=== PATIENT | male | born 1995 | race Caucasian/White ===

== ENCOUNTER 2020-12-19 09:44 | Emergency (ER) | payer BC, SELFPAY ==
--- NOTE | 2020-12-19 09:45 | DI.RAD_ITS ---
EXAM: XR SHOULDER LT COMPLETE 2+V CLINICAL HISTORY: Fall, lateral pain. TECHNIQUE: 2D digital imaging was performed. COMPARISON: No exams were available for comparison FINDINGS: BONES: No acute fracture is present. No bony destructive lesion is seen. JOINTS: No dislocation present. SOFT TISSUE: Normal. IMPRESSION: Unremarkable radiographs of the left shoulder. DATA REPOSITORY: RADIATION DOSE DELIVERED:
[2020-12-19 09:50] VITALS: BP 117/78; PULSE 99; RESP 16; TEMP 37.2; O2SAT 98
--- NOTE | 2020-12-19 10:01 | W.ED.GENAD ---
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 He contused both knees and also complains of left shoulder pain. Clinically the knees have mild contusions and are not in need of x-ray. He has left lateral shoulder tenderness on palpation must exclude distal clavicle or AC injury and cannot exclude rotator cuff injury. Patient with ibuprofen and referred for x-ray. There is no evidence of bony fracture or displacement. Will place in sling. Will refer to orthopedics for followup-recheck. Given work note off duty. HPI General Mode of arrival: ambulatory. Date/Time Provider Initiated Documentation: 12/19/20 09:45. Limitations to Documentation: no limitations. Information obtained by: patient. History of Present Illness 25 year old M presents to the emergency department with the chief complaint of Fall downstairs, bilateral knee and left shoulder pain, described as moderate, Quality is described as constant, and is localized to the left and upper extremity. Patient reports no radiation. Patient started experiencing this minute(s) and it has been constant. No relieving factors improve symptom(s), No exacerbating factors reported . Patient notes denies chest pain, headaches, shortness of breath and syncope. Patient did receive the following treatments prior to arrival, none Related Data Home Medications Medication Instructions Recorded Confirmed Unknown [No Known Home Meds] 12/19/20 12/19/20 Allergies Allergy/AdvReac Type Severity Reaction Status Date / Time Penicillins Allergy Unverified 12/19/20 09:52 General Stated Complaint: Orthopedic KRISTIAN: 4 Review of Systems Narrative: No headache or loss of conscious. No chest/neck/back or abdominal pain. No difficulty breathing. 6 systems reviewed and otherwise negative [facility] Social History Smoking/Tobacco Use Status: Never Smoking risk assessment performed?: Yes Alcohol Intake: never Drug use: Never Substance use type: does not use Do you feel safe at home: Yes Do you feel safe in your relationship?: Yes Exam Narrative Exam Narrative: GEN: awake, alert, oriented 3. Pleasant, well groomed, interactive. HEAD: Normocephalic, atraumatic ENT: Mucous membranes moist, oropharynx unremarkable, External ear exam unremarkable EYES: PERRL, EOMI NECK: Full ROM, no DANIELA, no menigismus CHEST/RESP: Nontender, clear to auscultation bilateral, no wheeze/rhonchi/rales CARDIOVASCULAR: RRR, no murmur, rub jessie. 2+ Rad pulse bilateral ABDOMEN: Soft, nontender, no mass. +Bowel sounds EXT: Full ROM, no edema, bilateral anterior knee subtle ecchymosis, normal strength. Left lateral shoulder tenderness to palpation. Patient is able to perform empty can test but with some increased pain posteriorly. Neuro: Grossly normal neurologic exam, conversant, interactive. Psych: Speech fluent, thoughts congruent, affect normal Course Vital Signs Vital signs: Vital Signs Temperature 37.2 C 12/19/20 09:50 Pulse 99 H 12/19/20 09:50 Respiratory Rate 16 12/19/20 09:50 Blood Pressure 117/78 12/19/20 09:50 Pulse Oximetry 98 12/19/20 09:50 Temperature 37.2 C 12/19/20 09:50 Temperature Source Skin 12/19/20 09:50 Pulse 99 H 12/19/20 09:50 Respiratory Rate 16 12/19/20 09:50 Respiratory Effort 12/19/20 09:52 Blood Pressure 117/78 12/19/20 09:50 Blood Pressure Position Sitting 12/19/20 09:50 Pulse Oximetry 98 12/19/20 09:50 Oxygen Delivery Method Room Air 12/19/20 09:50 Oxygen Flow Rate 0 12/19/20 09:50 Pain Level 7 12/19/20 09:52
[2020-12-19] MEDS: Ibuprofen 800 MG TAB PO (10:13)
--- NOTE | 2020-12-19 10:21 | NUR.NOTE ---
abrasion to right knee, no bleeding.
--- NOTE | 2020-12-19 10:57 | DI.VRAD_ITS ---
PROCEDURE INFORMATION: Exam: XR Left Shoulder Exam date and time: 12/19/2020 10:00 AM Age: 25 years old Clinical indication: Other: Fall, lateral pain TECHNIQUE: Imaging protocol: XR Left shoulder. Views: 2 or more views. COMPARISON: No relevant prior studies available. FINDINGS: Bones/joints: Normal. Soft tissues: Normal. IMPRESSION: No acute findings. Dictated and Authenticated by: Elaine Flores MD. Ordering:JASMIN Whitmore MD
== END 2020-12-19 11:07 | disposition home or self-care (01) ==
PROVIDERS: Emergency Provider Emergency Medicine
DX: S46.912A Strain of unspecified muscle, fascia and tendon at shoulder and upper arm level, left arm, initial encounter (principal); S80.01XA Contusion of right knee, initial encounter; S80.02XA Contusion of left knee, initial encounter; W10.8XXA Fall (on) (from) other stairs and steps, initial encounter; Y99.0 Civilian activity done for income or pay
CPT/HCPCS: 99283; 73030

== ENCOUNTER 2020-12-23 14:41 | Emergency (ER) | payer BC, SELFPAY ==
[2020-12-23 14:48] VITALS: BP 143/79; PULSE 87; RESP 16; TEMP 36.5; O2SAT 97
--- NOTE | 2020-12-23 14:55 | ED.GENADUL_ITS ---
Discharge Plan Disposition Patient Disposition: HOME Condition: Stable Discharge Details Clinical Impression: Chronic left shoulder pain Primary Care Provider: Krish Cook ED Provider: Sabra Jovel Home Meds and New Rx's Prescriptions: No Action No Known Home Meds RF: 0 Discharge Instructions Instructions: Shoulder Pain (ED) Additional Instructions: Rest, ice, and elevate the affected area as much as possible. Alternate tylenol and motrin as needed and directed for pain. Continue to wear your sling for comfort but continue to use gentle shoulder range of motion exercises to prevent frozen shoulder. Follow-up with your scheduled appointment with orthopedics next month. Return immediately to the emergency department if you develop any worsening or new concerning symptoms. Stand Alone Forms: Work Release Discharge Data Discharge Physician: Sabra Jovel Medical Decision Making 25-year-old male presents with persistent left shoulder pain after fall down stairs a few days ago. Seen here at that time with negative left shoulder x- rays. Presents with persistent pain. Patient wearing a left sling. He has tenderness to palpation of his left distal clavicle and left anterior lateral shoulder. Pain is reproducible with active and passive range of motion, without deformity or evidence of trauma and he is neurovascular intact. Suspect most likely persistent pain associated with shoulder strain versus contusion, may be exacerbated by lying on left side while sleeping. Do not see indication for additional imaging as this would not change the plan at this point at this time. Also consider possible rotator cuff injury. Patient placed on orthopedic follow-up with for reevaluation if pain persists or worsens. Patient expressed concern about returning to work this week. Patient given a work note to return next week. Usual and customary return precautions given prior to discharge. Medical Records Medical records reviewed: Yes I reviewed the patient's medical records. HPI General Mode of arrival: ambulatory . Date/Time Provider Initiated Documentation: 12/23/20 14:44 . Limitations to Documentation: no limitations . Information obtained by: patient . HPI Narrative: Patient is a 25-year-old male who presents with persistent left shoulder pain after a fall 3 days ago at work. Patient states he slipped on a recently cleaned floor at work and rolled down a few stairs and fell on his left shoulder. Patient was seen here 3 days ago for this complaint and had a left shoulder x-ray which was negative. Patient states he was advised to return if his symptoms do not improve or worsen. He states he has not yet returned to work and has been wearing a left sling but has been using gentle range of motion exercises for his left shoulder. He states he thinks he is turning in his sleep and leaning on his left shoulder at times. He admits to occasional radiation of pain into his distal arm with some tingling in his fingers. He has been taking ibuprofen regularly with some relief. Related Data Home Medications Medication Instructions Recorded Confirmed Unknown [No Known Home Meds] 12/19/20 12/19/20 Allergies Allergy/AdvReac Type Severity Reaction Status Date / Time Penicillins Allergy Unverified 12/19/20 09:52 General Stated Complaint: Recheck KRISTIAN: 4 Review of Systems All systems reviewed & are unremarkable except as noted in HPI and below Constitutional Constitutional: Reports as per HPI, Denies chills and Denies fever(s) Eyes Eyes: Denies blurry vision ENT Ears, Nose, Mouth, and Throat: Denies dizziness, Denies sore throat and Denies throat swelling Cardiovascular Cardiovascular: Denies chest pain and Denies dyspnea Respiratory Respiratory: Denies cough and Denies dyspnea Gastrointestinal Gastrointestinal: Denies abdominal pain, Denies diarrhea and Denies vomiting Genitourinary Genitourinary: Denies hematuria and Denies dysuria Musculoskeletal Musculoskeletal: Denies back pain and Denies numbness Integumentary/Breasts Skin/Breast: Denies lesions and Denies rash Neurologic Neurologic: Denies dizziness, Denies localized weakness and Denies numbness Allergic/Immunologic Allergic/Immunologic: Denies throat swelling [facility] Medical History (Updated 12/23/20 @ 19:46 by Sabra Jovel DO) No significant past medical history Surgical History (Updated 12/23/20 @ 19:46 by Sabra Jovel DO) No significant past surgical history Social History Smoking/Tobacco Use Status: Never Smoking risk assessment performed?: Yes Alcohol Intake: never Drug use: Never Substance use type: does not use Do you feel safe at home: Yes Do you feel safe in your relationship?: Yes Exam Const General: cooperative, healthy appearing and no acute distress HENMT Head: normal to inspection Mouth: oral mucosae normal Eyes General: appearance normal, both eyes and all related structures Neck Neck: normal visual inspection Resp Effort & Inspection: normal respiratory effort and able to speak in complete sentences Cardio Rate: regular rate Skin General skin exam: no rashes or lesions noted Neuro General: patient alert, patient awake and patient oriented x3 Motor: muscle tone normal throughout Extrem Other: Tenderness to palpation to left lateral clavicle and left anterior and lateral shoulder. Pain in left shoulder reproducible with passive and active range of motion. There is no crepitus, deformity, edema, erythema, ecchymosis. Left radial and ulnar pulses intact. No tenderness palpation of left elbow. Psych Appearance: grossly normal Affect: normal affect Course Vital Signs Vital signs: Vital Signs Temperature 97.7 F 12/23/20 14:48 Pulse 87 12/23/20 14:48 Respiratory Rate 16 12/23/20 14:48 Blood Pressure 143/79 H 12/23/20 14:48 Pulse Oximetry 97 12/23/20 14:48 Temperature 97.7 F 12/23/20 14:48 Temperature Source Temporal Artery Scan 12/23/20 14:48 Pulse 87 12/23/20 14:48 Respiratory Rate 16 12/23/20 14:48 Respiratory Effort Non-Labored 12/23/20 14:50 Blood Pressure 143/79 H 12/23/20 14:48 Blood Pressure Position Sitting 12/23/20 14:48 Pulse Oximetry 97 12/23/20 14:48 Oxygen Delivery Method Room Air 12/23/20 14:48 Oxygen Flow Rate 0 12/23/20 14:48 Pain Level 8 12/23/20 14:48
== END 2020-12-23 16:12 | disposition home or self-care (01) ==
PROVIDERS: Emergency Provider Physician Assistant; PCP Nurse Practitioner
DX: M25.512 Pain in left shoulder (principal); G89.29 Other chronic pain
CPT/HCPCS: 99282; 99283

== ENCOUNTER 2020-12-30 06:30 | Emergency (ER) | payer BC, SELFPAY ==
[2020-12-30 06:40] VITALS: BP 128/79; PULSE 94; RESP 15; TEMP 36.5; O2SAT 98
--- NOTE | 2020-12-30 06:51 | W.ED.GENAD ---
Discharge Plan Disposition Patient Disposition: HOME Condition: Stable Discharge Details Chief Complaint: Orthopedic Clinical Impression: Left shoulder strain Primary Care Provider: Krish Cook ED Provider: Joel Perez Home Meds and New Rx's Prescriptions: No Action No Known Home Meds RF: 0 Discharge Instructions Instructions: Shoulder Pain (ED) Additional Instructions: You likely have injury to the tendons or ligaments in your shoulder follow up as scheduled with orthopedics if you have severe worsening pain, fevers or spreading redness around the shoulder return to the emergency department Stand Alone Forms: Work Release Medical Decision Making 25 yo male with no chronic medical problems comes in with left shoulder pain. He injured it on 12/19 after he fell down 4-6 stairs and had negative xrays at that time. He was at work last night and lifted 15 poud object with the left arm which increased the pain. Denies any trauma, falls, swelling, redness, sensation changes. He is able to abduct the shoulder to 90 degrees then limited by pain. No swelling, redness or warmth. Localizes the pain to the posterior shoulder. normal distal sensation and pulses. Suspect rotator cuff injury vs tendonitis vs bursitis. I am able to fully range the shoulder on exam though with pain. No assymetry compared to the other shoulder and no other deformities so doubt fx/dislocation and did not sustain a new trauma so do not feel repeat xrays indicated. He has f/u with orthopedics, advised no heavy lifting until cleared by orthopedics and return precautions given Differential Diagnosis Differential Diagnosis: rotator cuff injury, tendonitis, bursitis Medical Records Medical records reviewed: Yes I reviewed the patient's medical records. HPI General Mode of arrival: ambulatory. Date/Time Provider Initiated Documentation: 12/30/20 06:33. Limitations to Documentation: no limitations. Information obtained by: patient. History of Present Illness 25 year old M presents to the emergency department with the chief complaint of left shoulder pain, described as moderate, and it has been constant. No relieving factors improve symptom(s), No exacerbating factors reported . Patient notes no other symptoms.. Patient did receive the following treatments prior to arrival, none Related Data Home Medications Medication Instructions Recorded Confirmed Unknown [No Known Home Meds] 12/19/20 12/30/20 Allergies Allergy/AdvReac Type Severity Reaction Status Date / Time Penicillins Allergy Unverified 12/30/20 06:43 General Stated Complaint: Orthopedic KRISTIAN: 4 Review of Systems All systems reviewed & are unremarkable except as noted in HPI and below Constitutional Constitutional: Denies chills, Denies fever(s) and Denies weakness Cardiovascular Cardiovascular: Denies chest pain and Denies dyspnea Respiratory Respiratory: Denies cough and Denies dyspnea Gastrointestinal Gastrointestinal: Denies abdominal pain, Denies nausea and Denies vomiting Neurologic Neurologic: Denies weakness [facility] Medical History (Updated 12/30/20 @ 06:57 by Joel Perez MD) No significant past medical history Surgical History (Updated 12/23/20 @ 19:46 by Sabra Jovel DO) No significant past surgical history Social History Smoking/Tobacco Use Status: Never Smoking risk assessment performed?: Yes Alcohol Intake: never Drug use: Never Substance use type: does not use Do you feel safe at home: Yes Do you feel safe in your relationship?: Yes Exam Const General: no acute distress Orientation: alert HENMT Head: normal to inspection Ears: external ears normal General nose exam: external nose normal Mouth: moist mucous membranes Eyes General: appearance normal, both eyes and all related structures Neck Neck: normal visual inspection Resp Effort & Inspection: normal respiratory effort and able to speak in complete sentences Cardio Rate: regular rate Skin General skin exam: no rashes or lesions noted Neuro General: patient alert and patient oriented x3 Extrem General: normal to inspection Psych Mental Status: mental status grossly normal Course Vital Signs Vital signs: Vital Signs Temperature 36.5 C 12/30/20 06:40 Pulse 94 H 12/30/20 06:40 Respiratory Rate 15 12/30/20 06:40 Blood Pressure 128/79 12/30/20 06:40 Pulse Oximetry 98 12/30/20 06:40 Temperature 36.5 C 12/30/20 06:40 Temperature Source Tympanic 12/30/20 06:40 Pulse 94 H 12/30/20 06:40 Respiratory Rate 15 12/30/20 06:40 Respiratory Effort Non-Labored 12/30/20 06:40 Blood Pressure 128/79 12/30/20 06:40 Blood Pressure Position Sitting 12/30/20 06:40 Pulse Oximetry 98 12/30/20 06:40 Oxygen Delivery Method Room Air 12/30/20 06:40 Oxygen Flow Rate 0 12/30/20 06:40 Pain Level 9 12/30/20 06:45
== END 2020-12-30 07:04 | disposition home or self-care (01) ==
PROVIDERS: Emergency Provider Emergency Medicine; PCP Nurse Practitioner
DX: S46.912A Strain of unspecified muscle, fascia and tendon at shoulder and upper arm level, left arm, initial encounter (principal); X50.9XXA Other and unspecified overexertion or strenuous movements or postures, initial encounter; Y99.0 Civilian activity done for income or pay
CPT/HCPCS: 99281